=== PATIENT | female | born 1955 | race Caucasian/White ===

== ENCOUNTER 2018-08-10 14:27 | Inpatient (IN) ==
[2018-08-10] MEDS ORDERED: SODIUM CHLORIDE 0.9% 500 ML IV SCH (15:00)
[2018-08-10 15:30] LABS: Appearance Urine Clear (Clear); Bacteria Urine Automated Negative (Negative); Bilirubin Urine Negative (Negative); Blood Urine Negative (Negative); Color Urine Yellow; Epithelial Cell Urine Auto >30 /lpf (0-5); Glucose Urine UA Negative (Negative); Ketones Urine Negative (Negative); Leukocyte Esterase Urine Trace (Negative); Nitrite Urine Negative (Negative); Protein Urine Negative (Negative); RBC Urine Automated 0-4 /hpf (0-4); Specific Gravity Urine 1.022 (1.000-1.030); Urobilinogen Urine Negative (Negative)
[2018-08-10 15:59] LABS: Hematocrit (blood only) 17.6 % (37-47); Hemoglobin 6.2 g/dL (12.0-16.0); Mean Corpuscular Hgb Conc 35.2 g/dL (32-36); Mean Corpuscular Volume 102.3 fL (80-100); Mean Platelet Volume 10.5 fL (7.4-10.4); Nucleated RBC # (auto) 0.38 K/uL (0-0); Nucleated RBC % (auto) 2.1 %; Platelet Count 289 K/uL (130-400); RDW Coefficient of Variation 14.5 % (11.5-14.5); RDW Standard Deviation 48.8 fL (36.4-46.3); Red Blood Count 1.72 M/uL (4.2-5.4); White Blood Count 17.95 K/uL (4.8-10.8)
[2018-08-10 16:01] LABS: Partial Thromboplastin Ratio 2.1; Prothrombin Time > 90.0 Seconds (9.0-12.0)
[2018-08-10 16:05] LABS: INR > 10.4 (0.9-1.1); Partial Thromboplastin Time 56.4 Seconds (21.0-31.0)
[2018-08-10 16:06] LABS: Anisocytosis Present; Basophils # (auto) 0.02 K/uL (0-0.2); Basophils % (auto) 0.1 %; Eosinophils # (auto) 0.01 K/uL (0-0.5); Eosinophils % (auto) 0.1 %; Immature Granulocytes # (auto) 0.37 K/uL (0.00-0.02); Immature Granulocytes % (auto) 2.1 %; Lymphocytes # (auto) 2.45 K/uL (1.2-3.4); Lymphocytes % (auto) 13.6 %; Monocytes # (auto) 0.82 K/uL (0.11-0.59); Monocytes % (auto) 4.6 %; Neutrophils # (auto) 14.28 K/uL (1.4-6.5); Neutrophils % (auto) 79.5 %; Polychromasia 1+
--- NOTE | 2018-08-10 16:16 | XRay Report ---
TWO VIEW CHEST CLINICAL HISTORY: Dizziness. Clinical concern for pneumonia. FINDINGS: PA and lateral chest radiographs are obtained. No prior studies are available for compariso n at the time of dictation. The patient is status post midline sternotomy and aortic valve surgery. The heart is mildly enlarged. The pulmonary vasculature is noncongested. A calcified granuloma is se en in the right midlung. The lungs and pleural spaces are otherwise clear. There is no pneumothorax. The skeletal structures are osteopenic. The bony thorax appears intact. IMPRESSION: Mild cardiac enlargement with no active disease in the chest. Electronically signed by: Jarrett West M.D. 08/10/2018 4:15 PM
[2018-08-10] MEDS ORDERED: PHYTONADIONE 10 MG in SODIUM CHLORIDE 0.9% 50 ML IV ONE (16:18)
[2018-08-10] MEDS ORDERED: SODIUM CHLORIDE 0.9% 250 ML IV PRN ×2 (16:18→20:09)
[2018-08-10] MEDS ORDERED: FAMOTIDINE 20MG IV PUSH 20 MG/5 ML SYR IV STA (16:22)
[2018-08-10 16:26] LABS: Albumin Globulin Ratio 1.1 (0.9-2); Albumin Level 3.1 gm/dl (3.4-5.0); Bilirubin,Total 0.4 mg/dl (0.2-1); Calcium 9.1 mg/dl (8.5-10.1); Creatinine Clr Calc Pharmacy 42.3 ml/min; Est GFR (African American) 52.8; Est GFR (Non-African American) 45.5; Globulin 2.7 gm/dl (2.5-4.0); Potassium 4.5 mmol/L (3.5-5.1); Total Protein 5.8 gm/dl (6.4-8.2)
[2018-08-10 16:53] LABS: Beta-Hydroxybutyrate 1.98 mg/dl (0.2-2.81)
--- NOTE | 2018-08-10 19:11 | CT Scan Report ---
CT head/brain wo con CT DOSE: 537.48 mGy.cm HISTORY: Mental status change RYAN, dizziness, elevated inr r/o bleed TECHNIQUE: Multiaxial CT images of the head were performed without the use of intravenous contrast. A dose lowering technique was utilized adhering to the principles of ALARA. Comparison: None. Findings: The paranasal sinuses and mastoid air cells are clear. The calvarium and skull base are int act. The ventricles and sulci are within normal limits. There is no mass, hematoma, midline shift, or acute infarct. Impression: No acute intracranial abnormality. The above report was generated using voice recognition software. It may contain grammatical, syntax or spelling errors. Electronically signed by: Hardeep Albert M.D. 08/10/2018 7:10 PM
[2018-08-10] MEDS ORDERED: ACETAMINOPHEN 325 MG TAB PO ONE (19:18)
[2018-08-10] MEDS ORDERED: INSULIN HUMAN REGULAR PER UNIT 6 UNITS in SYRINGE 5.94 ML IV ONE (19:30)
--- NOTE | 2018-08-10 19:38 | History & Physical Report ---
Date of Service August 10, 2018 Assessment & Plan (1) Symptomatic anemia: (2) GI bleed: Presented with dark stools x 1 week. Reports loose stools x 3 weeks. Recent Augmentin use and steroid use heme positive stool in ER WBC: 17.9 (pt has been on steroids). H/H: 6.2/17.6 (Hgb was 10.9 on 08/04/18), INR>10, BUN: 42, Cr: 1.2. UA: trace leuk esterase, >30 epithelial, negative nitrites, negative blood. CXR: no active disease. In ER was given 500ml NSS, pepcid 20mg IV Possible GI bleed vs other -IVF -PRBC transfusion -Monitor H&H and -IV PPI -NPO -hold coumadin -GI consult -monitor CBC, BMP, INR (3) Supratherapeutic INR: INR >10 ER physician spoke with Dr Lynn reports recommended FFP. In ER pt was given vitamin K 10mg IV, FFP ordered -monitor INR -hold coumadin (4) Dizziness: C/O dizziness, RYAN, neck aching and palpitations with walking. CT HEAD: no acute changes Probable symptomatic anemia -monitor -fall precautions -if no improvement consider further imaging or neuro consult (5) Paroxysmal atrial fibrillation: Hx ablation 2012. On coumadin. -continue sotalol -holding coumadin secondary to elevated INR as above (6) History of aortic valve replacement: bioprosthetic valve. 2012 (7) Hyperglycemia: (8) Diabetes mellitus, type II: A1c: 7.1 on 06/28/18 Glucose: 324. no anion gap, negative beta hydroxybutyric acid Pt has been on steroids Insulin R 6 units IV Novolog, Lantus sliding scale per protocol Hold home oral agents (9) HTN (hypertension): Stable Will hold lisinopril at this time and monitor BP (10) HLD (hyperlipidemia): Hold statin with current NPO status DVT Prophylaxis -INR>10 Full Code as per discussion with pt Follows with Tomasa Lomeli for routine care Pt was seen with Dr Burdick. See addendum History of Present Illness Chief Complaint: Dizziness Primary Care Provider: NO PCP Pt is 63 y/o F with PMH AVR with bioprosthetic valve in 2012, s/p ascending aortic aneurysm repair 2012, paroxysmal atrial fibrillation with history of ablation in 2012 on Coumadin, CAD s/p cath 2012 with nonobstructive CAD, HTN, HLD, DM II presented to ER with complaint of dizziness. Pt is poor historian. Patient reports for the past week has been feeling dizzy with associated headache and neck aching and pounding sensation in the chest with walking and standing. She denies any syncopal episodes. Patient states today was having pink specks in her vision bilaterally with standing. Also reports the past week with intermittent right arm numbness with standing and walking occurs with the dizziness. Patient was seen by PCP 08/03/2017 with reported sinus pain congestion and ear pain for 2 weeks and was placed on Augmentin and Medrol Dosepak. Patient was then placed on prednisone taper 2 days ago. Today patient is denying any nasal congestion. Patient states approximately 3 weeks ago started with loose stools. Approximately 1 week ago had vomiting for 1 to 2 days which has resolved. Patient states continues with loose stools. Reports the past week has noticed black-colored stools. Patient states was having some lower abdominal aching and mid back pain 1 week ago had gross hematuria with some intermittent dysuria. Patient states dysuria and hematuria and back pain have since resolved. Patient reports had outpatient CT scan which showed stones in kidneys. She reports is been measuring temperature and highest is been 99F 1 week ago. Last had INR checked on 07/12/2018 and INR was 2.8. Denies diaphoresis, vision loss, SOB, orthopnea, cough, sore throat, choking, otalgia, rhinorrhea, extremity weakness, extremity edema, rashes. History UGI 2013 that was normal History colonoscopy in 2014 that was normal Allergies Allergy/AdvReac Type Severity Reaction Status Date / Time ciprofloxacin Allergy Unknown Nausea/Vomi Verified 08/10/18 16:09 ting metformin AdvReac Unknown Diarrhea Verified 08/10/18 16:09 Home Medications Home Medications Medication Instructions Recorded Confirmed Type amoxicillin-pot clavulanate 1 tab PO BID 08/10/18 08/10/18 History [Augmentin] atorvastatin 80 mg PO HS 08/10/18 08/10/18 History fluticasone propionate [Flonase 2 spray INTRANASAL DAILY 08/10/18 08/10/18 History Allergy Relief] glimepiride 4 mg PO QAM 08/10/18 08/10/18 History ketoconazole 2 % TOPICAL DAILY 08/10/18 08/10/18 History lisinopril 40 mg PO DAILY 08/10/18 08/10/18 History omeprazole 20 mg PO DAILY 08/10/18 08/10/18 History oxybutynin chloride 10 mg PO DAILY 08/10/18 08/10/18 History prednisone See Rx Instructions .ROUTE .COMPLEX 08/10/18 08/10/18 History pregabalin [Lyrica] 50 mg PO TID 08/10/18 08/10/18 History repaglinide 1 mg PO TIDM 08/10/18 08/10/18 History sotalol 40 mg PO Q12H 08/10/18 08/10/18 History warfarin 2.5 mg PO 5XWK 08/10/18 08/10/18 History warfarin 5 mg PO 2XWK 08/10/18 08/10/18 History Past Med/Surg History Medical History History of hysterectomy (Chronic) History of cardioversion (Chronic) Paroxysmal atrial fibrillation (Chronic) Diabetes mellitus, type II (Chronic) HLD (hyperlipidemia) (Chronic) HTN (hypertension) (Chronic) No significant past medical history Surgical History Hx of tonsillectomy (Chronic) History of cataract surgery (Chronic) History of appendectomy (Chronic) History of (Chronic) History of aortic valve replacement (Chronic) Family History Other Heart disease Social History Preferred Language: Spanish Feels Safe at Home: Yes Smoking Status: Never smoker Hx Alcohol Use: No Hx Substance Use: No Review of Systems Review of Systems: All systems reviewed & are unremarkable except as noted in HPI & below Physical Exam Physical Exam: General: no acute distress, WDWN Head: normocephalic, atraumatic Eyes: PERRL, EOM's intact, conjunctiva pale, anicteric ENT: normal inspection external ears, nose, mucous membranes moist Neck: supple, trachea midline, non-tender Lungs: clear, no respiratory distress, no wheezing/rhonchi/rales CV: RRR, no JVD, no pretibial edema Abd: normal BS, soft, non-tender Ext: no cyanosis, no calf tenderness, strength 4/5 upper and lower extremities Neuro: A&O x 3, no focal deficits noted, normal affect Skin: warm, dry, skin pale Results & Data Vital Signs (Past 12 Hours) Vital Signs Temp Pulse Pulse Resp BP BP Pulse Ox 08/10/18 19:17 37.0 C 68 18 137/55 L 95 08/10/18 18:27 67 20 159/68 H 96 08/10/18 17:57 71 20 159/68 H 96 08/10/18 16:46 71 20 161/57 H 96 08/10/18 16:04 62 20 97 08/10/18 15:13 59 L 99 08/10/18 14:29 36.8 C 115 H 17 141/71 H 98 Laboratory Results Short CBC 08/10/18 Range/Units 15:20 WBC 17.95 H (4.8-10.8) K/uL Hgb 6.2 L* (12.0-16.0) g/dL Hct 17.6 L* (37-47) % Plt Count 289 (130-400) K/uL BMP 08/10/18 15:20 Sodium 137 Potassium 4.5 Chloride 107 Carbon Dioxide 20 L BUN 42 H Creatinine 1.24 H Glucose 346 H* Calcium 9.1 Cardiac Enzymes 08/10/18 Range/Units 15:20 Troponin I < 0.015 (0-0.045) ng/ml Liver Function 08/10/18 Range/Units 15:20 Total Bilirubin 0.4 (0.2-1) mg/dl AST 20 (15-37) U/L ALT 24 (12-78) U/L Alkaline Phosphatase 92 (45-117) U/L Albumin 3.1 L (3.4-5.0) gm/dl Urine 08/10/18 Range/Units 15:10 Urine Color Yellow Urine Appearance Clear (Clear) Urine pH 5.0 (4.5-7.5) Ur Specific [place] 1.022 (1.000-1.030) Urine Protein Negative (Negative) Urine Glucose (UA) Negative (Negative) Diagnostic Findings CXR: IMPRESSION: Mild cardiac enlargement with no active disease in the chest. CT HEAD: Impression: No acute intracranial abnormality. Supervising Physician Co-Signing Physician Notes I have seen and examined the patient and have discussed the case with the provider above. I agree with the assessment and plan as stated with the following exceptions. Mrs. Hernandez has been having dark black stools and dizziness for the past week. She denies abdominal pain but has suprapubic TTP on exam. She is hemodynamically stable. Symptoms likely 2/2 low blood counts 2/2 supratherapeutic INR in the setting of recent Augmentin and steroid use with coumadin. This is likely acute blood loss anemia 2/2 GI bleed. PPI drip running. Two units of blood ordered. No further indications for steroids so these have been stopped and have caused significant hyperglycemia that we are also combatting overnight with insulin pushes. She is currently NPO. GI consult pending. On exam, she is mentating well and in no acute distress. Lungs are clear to auscultation bilaterally. S1/2 heard with normal rate and rhythm. No m/g/r heard. No peripheral edema present and extremities are warm and well-perfused. Abdomen is soft and nondistended with some suprapubic tenderness to palpation. Cont with plan as above. DO Gennaro Active issues: symptomatic, acute blood loss anemia supratherapeutic INR PAF T2DM with acute hyperglycemia
[2018-08-10] MEDS ORDERED: NovoLIN-R INSULIN PER UNIT CHARGE ONE (19:45)
[2018-08-10] MEDS ORDERED: PANTOprazole 40 MG in SYRINGE 0 ML IV ONE (20:30)
--- NOTE | 2018-08-10 20:30 | Emergency Department Note ---
Entered by Cuca Gomez acting as a scribe for Kris Aly MD History of Present Illness General Chief complaint: Dizziness Stated complaint: KIDNEY STONES, STOMACH PROBLEMS Source: patient History of Present Illness Onset (ago): week(s) 3 Location: abdomen (lower) Pain Consistency: + other (worsening ) Maximum Pain Intensity: 7 Quality: + sharp Associated symptoms: + loss of appetite, + nausea/vomiting (now resolved) and + other (positive loose stools; negative pain with urination; positive dizziness; ); no fever/chills The patient is a 63 year old female who presents to the Emergency Room with complaints of worsening lower abdominal pain that began 3 weeks ago. The patient states that she has had this intermittent pain over the past year, but states that it has worsened over the past 3 weeks. The patient describes this pain as sharp. She states that she has had loose stools, dizziness, and no appetite during this time. She denies hematochezia. The patient denies pain with urination and fever. The patient states that she previously had vomiting, but states that this has since resolved. She states that she was seen in [place] recently for an infection and a CT scan showed kidney stones. The patient is unsure of what infection she has, and states that she was given Augmentin and Prednisone for this infection. She states that she finished the Prednisone taper, and states that she just began another Prednisone taper. The patient denies knowing why she is taking Prednisone. Home Medications Home Medications Medication Instructions Recorded Confirmed Type amoxicillin-pot clavulanate 1 tab PO BID 08/10/18 08/10/18 History [Augmentin] atorvastatin 80 mg PO HS 08/10/18 08/10/18 History fluticasone propionate [Flonase 2 spray INTRANASAL DAILY 08/10/18 08/10/18 Hi story Allergy Relief] glimepiride 4 mg PO QAM 08/10/18 08/10/18 History ketoconazole 2 % TOPICAL DAILY 08/10/18 08/10/18 History lisinopril 40 mg PO DAILY 08/10/18 08/10/18 History omeprazole 20 mg PO DAILY 08/10/18 08/10/18 History oxybutynin chloride 10 mg PO DAILY 08/10/18 08/10/18 History prednisone See Rx Instructions .ROUTE .COMPLEX 08/10/18 08/10/18 History pregabalin [Lyrica] 50 mg PO TID 08/10/18 08/10/18 History repaglinide 1 mg PO TIDM 08/10/18 08/10/18 History sotalol 40 mg PO Q12H 08/10/18 08/10/18 History warfarin 2.5 mg PO 5XWK 08/10/18 08/10/18 History warfarin 5 mg PO 2XWK 08/10/18 08/10/18 History Allergies Allergy/AdvReac Type Severity Reaction Status Date / Time ciprofloxacin Allergy Unknown Nausea/Vomi Verified 08/10/18 16:09 ting metformin AdvReac Unknown Diarrhea Verified 08/10/18 16:09 Past Med/Surg History Medical History History of hysterectomy (Chronic) History of cardioversion (Chronic) Paroxysmal atrial fibrillation (Chronic) Diabetes mellitus, type II (Chronic) HLD (hyperlipidemia) (Chronic) HTN (hypertension) (Chronic) No significant past medical history Surgical History Hx of tonsillectomy (Chronic) History of cataract surgery (Chronic) History of appendectomy (Chronic) History of (Chronic) History of aortic valve replacement (Chronic) Family History Other Heart disease Social History Preferred Language: [place] Feels Safe at Home: Yes Smoking Status: Never smoker Hx Alcohol Use: No Hx Substance Use: No Review of Systems See HPI for pertinent positives & negatives. and A total of 10 systems reviewed and were otherwise negative Physical Exam Vital Signs Vital Signs - 24 hr 08/10/18 14:29 08/10/18 15:13 08/10/18 16:04 Temperature 36.8 C Temperature Source Oral Sepsis Recent Fever Within 48 Hours No Sepsis New/Unexplained Change in Mental Status No Sepsis Action Taken by Nursing No Action Required Pulse Rate 115 H 59 L Pulse Rate [Right] 62 Pulse Strength Normal Respiratory Rate 17 20 Respiratory Effort / Characteristics Non-Labored Non-Labored Spontaneous Respiratory Depth Normal Normal Respiratory Pattern Regular Blood Pressure 141/71 H Blood Pressure [Right Arm] Blood Pressure Mean 94 Blood Pressure Mean [Right Arm] Blood Pressure Position Sitting Blood Pressure Position [Right Arm] Pulse Oximetry 98 99 97 Oxygen Delivery Method Room Air Room Air Room Air 08/10/18 16:46 08/10/18 17:57 08/10/18 18:27 Temperature Temperature Source Sepsis Recent Fever Within 48 Hours Sepsis New/Unexplained Change in Mental Status Sepsis Action Taken by Nursing Pulse Rate Pulse Rate [Right] 71 71 67 Pulse Strength Respiratory Rate 20 20 20 Respiratory Effort / Characteristics Non-Labored Spontaneous Non-Labored Spontaneous Non-Labored Spontaneous Respiratory Depth Normal Normal Respiratory Pattern Blood Pressure Blood Pressure [Right Arm] 161/57 H 159/68 H 159/68 H Blood Pressure Mean Blood Pressure Mean [Right Arm] 91 98 98 Blood Pressure Position Blood Pressure Position [Right Arm] Lying Lying Lying Pulse Oximetry 96 96 96 Oxygen Delivery Method Room Air Room Air Room Air 08/10/18 19:17 08/10/18 19:33 08/10/18 19:48 Temperature 37.0 C 37.1 C 36.9 C Temperature Source Oral Oral Oral Sepsis Recent Fever Within 48 Hours Sepsis New/Unexplained Change in Mental Status Sepsis Action Taken by Nursing Pulse Rate 68 69 65 Pulse Rate [Right] Pulse Strength Respiratory Rate 18 18 18 Respiratory Effort / Characteristics Respiratory Depth Respiratory Pattern Blood Pressure 137/55 L 118/53 L 110/68 Blood Pressure [Right Arm] Blood Pressure Mean 82 74 82 Blood Pressure Mean [Right Arm] Blood Pressure Position Lying Sitting Sitting Blood Pressure Position [Right Arm] Pulse Oximetry 95 97 97 Oxygen Delivery Method 08/10/18 20:18 Temperature 37.1 C Temperature Source Oral Sepsis Recent Fever Within 48 Hours Sepsis New/Unexplained Change in Mental Status Sepsis Action Taken by Nursing Pulse Rate 66 Pulse Rate [Right] Pulse Strength Respiratory Rate 18 Respiratory Effort / Characteristics Respiratory Depth Respiratory Pattern Blood Pressure 113/52 L Blood Pressure [Right Arm] Blood Pressure Mean 72 Blood Pressure Mean [Right Arm] Blood Pressure Position Sitting Blood Pressure Position [Right Arm] Pulse Oximetry 95 Oxygen Delivery Method Constitutional: Vital signs reviewed. Eyes: Pupils are equal round reactive to light. Conjunctiva are noninjected. ENT: Pharynx is clear without erythema or exudate. Mucous membranes are moist. Neck supple without meningeal signs. Respiratory: Clear to auscultation bilaterally. Breath sounds are equal bilaterally. Cardiovascular: Regular rate and irregular rhythm. No rubs or gallops. GI: Soft, nondistended and nontender. Bowel sounds are present. Rectal: Guaiac positive. Dark stool. No blood. Musculoskeletal: No peripheral edema. No lower extremity tenderness. Integumentary: No cyanosis. Neurological: The patient is awake and alert. No focal deficits. Psychiatric: Normal affect. Course 1437: The patient was evaluated in room C5, and a complete history and physical examination were performed. 1546: I discussed the results from [facility] with the patient. She states that she had no idea that she was on Prednisone and Augmentin for a sinus infection, and states that she has not been having sinus issues. The patient states that she remembers mentioning that maybe her "stomach bug went to her sinuses". I explained the CT results with the patient and explained how the kidney stones are not causing her symptoms. I recommended that the patient stop the steroid because it is raising her blood sugar and affecting her appetite. 1608: The patient states that she is not having chest pain, but states that she gets short of breath when she feels dizzy. 1617: I informed the patient that her hemoglobin is 6. The patient denies rectal bleeding but states that she had black stools for the past week. She states that she gave urine one week ago and states that it was mostly blood, but states that she has not seen any blood in her urine since. The patient consented to transfusion. 1619: I discussed the case with Dr. Camara who recommends giving the patient vitamin K and to not give the patient Kcentra. She states that the patient can be transfused and be given FFP. 1628: I discussed the case with Jonelle Rubio PA-C who accepts t he patient for Dr. Rosa Jean-Baptiste for further evaluation. 1904: The patient is beginning transfusion. I spoke to Dr. Rosa Jean-Baptiste who states that the patient will be getting a CT of the head because the patient is complaining of a headache. Consultations Consultation #1: I discussed the case with Dr. Camara who recommends giving the patient vitamin K and to not give the patient Kcentra. She states that the patient can be transfused and be given FFP. Time: 16:19 Consultation #2: I discussed the case with Jonelle Rubio PA-C who accepts the patient for Dr. Lee Hospitalist for further evaluation. Time: 16:28 Administered Medications Sodium Chloride (Nss) 250 mls @ 15 mls/hr IV .[id number] PRN PRN Reason: For Transfusion Stop: 09/09/18 16:17 Last Admin: 08/10/18 16:52 Dose: 15 mls/hr Documented by: [id number] Discontinued Medications Acetaminophen (Tylenol) 650 mg PO NOW ONE Stop: 08/10/18 19:19 Last Admin: 08/10/18 19:29 Dose: 650 mg Documented by: [id number] Diphenhydramine HCl (Benadryl Capsule) 25 mg PO NOW ONE Stop: 08/10/18 19:17 Last Admin: 08/10/18 19:29 Dose: 25 mg Documented by: [id number] Sodium Chloride (Nss) 500 mls @ 999 mls/hr IV .[id number] BOOGIE Stop: 08/10/18 15:30 Last Infusion: 08/10/18 16:01 Dose: 0 mls/hr Documented by: [id number] Admin: 08/10/18 15:14 Dose: 999 mls/hr Documented by: [id number] Famotidine (Pepcid 20mg Iv Push) 20 mg in 5 mls @ 2.5 mls/min IV NOW STA Stop: 08/10/18 16:23 Last Admin: 08/10/18 16:51 Dose: 2.5 mls/min Documented by: [id number] Phytonadione 10 mg/ Sodium (Chloride) 51 mls @ 102 mls/hr IV ONE ONE Stop: 08/10/18 16:47 Last Infusion: 08/10/18 17:40 Dose: 0 mls/hr Documented by: [id number] Admin: 08/10/18 16:51 Dose: 102 mls/hr Documented by: [id number] Insulin Human Regular 6 units/ (Syringe) 6 mls @ 12 mls/min IV ONE ONE Stop: 08/10/18 19:31 Last Admin: 08/10/18 19:52 Dose: 12 mls/min Documented by: [id number] Cosigned by: [id number] Insulin Human Regular (Novolin R U-100 Per Unit) Confirm Administered Dose 6 units .ROUTE .STK-MED ONE Stop: 08/10/18 19:46 Last Admin: 08/10/18 19:49 Dose: Not Given Documented by: [id number] Medical Decision Making Differential Diagnosis Differential diagnoses include infection, UTI, pneumonia, kidney stone, colitis, enteritis, dehydration, anemia, and others were considered. Medical Records Attestation: I reviewed the patient's medical records. The patient was seen on 08/03/2018 and was treated with Augmentin and Prednisone for a sinus infection. Blood work showed hyperglycemia with a sugar of 356. The patient was anemic. Urine showed hematuria. A CT on 08/08/2018 of the abdomen/pelvis showed enteritis and bilateral non-obstructing renal calculi. Home Medications Current Medication List: was personally reviewed by me Laboratory Data Attestation: I reviewed the patient's lab results. Result diagrams: 08/10/18 15:20 08/10/18 15:20 Lab Results 08/10/18 08/10/18 08/10/18 Range/Units 15:10 15:10 15:20 WBC (4.8-10.8) K/uL RBC (4.2-5.4) M/uL Hgb (12.0-16.0) g/dL Hct (37-47) % MCV (80-100) fL MCH (25-34) pg MCHC (32-36) g/dL RDW Std Deviation (36.4-46.3) fL RDW Coeff of Ravin (11.5-14.5) % Plt Count (130-400) K/uL MPV (7.4-10.4) fL Immature Gran % (Auto) % Neut % (Auto) % Lymph % (Auto) % [place] % (Auto) % Eos % (Auto) % Baso % (Auto) % Immature Gran # (Auto) (0.00-0.02) K/uL Neut # (Auto) (1.4-6.5) K/uL Lymph # (Auto) (1.2-3.4) K/uL [place] # (Auto) (0.11-0.59) K/uL Eos # (Auto) (0-0.5) K/uL Baso # (Auto) (0-0.2) K/uL Absolute Nucleated RBC (0-0) K/uL Nucleated RBC % (auto) % Polychromasia Anisocytosis PT (9.0-12.0) Seconds INR (0.9-1.1) APTT (21.0-31.0) Seconds PTT Ratio Sodium 137 (136-145) mmol/L Potassium 4.5 (3.5-5.1) mmol/L Chloride 107 (98-107) mmol/L Carbon Dioxide 20 L (21-32) mmol/L Anion Gap 10.0 (3-11) BUN 42 H (7-18) mg/dl Creatinine 1.24 H (0.6-1.2) mg/dl Est Cr Clr Drug Dosing 42.3 ml/min Est GFR ( Amer) 52.8 Est GFR (Non-Af Amer) 45.5 BUN/Creatinine Ratio 34.0 H (10-20) Glucose 346 H* (70-99) mg/dl POC Glucose (70-99) Calcium 9.1 (8.5-10.1) mg/dl Total Bilirubin 0.4 (0.2-1) mg/dl AST 20 (15-37) U/L ALT 24 (12-78) U/L Alkaline Phosphatase 92 (45-117) U/L Troponin I (0-0.045) ng/ml Total Protein 5.8 L (6.4-8.2) gm/dl Albumin 3.1 L (3.4-5.0) gm/dl Globulin 2.7 (2.5-4.0) gm/dl Albumin/Globulin Ratio 1.1 (0.9-2) Lipase (73-393) U/L Beta-Hydroxybutyric Acd 1.98 (0.2-2.81) mg/dl Urine Color Yellow Urine Appearance Clear (Clear) Urine pH 5.0 (4.5-7.5) Ur Specific [place] 1.022 (1.000-1.030) Urine Protein Negative (Negative) POC Urine Protein Negative (Negative) Urine Glucose (UA) Negative (Negative) POC Ur Glucose (UA) Normal (Normal) Urine Ketones Negative (Negative) POC Urine Ketones Negative (Negative) Urine Blood Negative (Negative) POC Urine Blood Trace H (Negative) Urine Nitrite Negative (Negative) POC Urine Nitrite Negative (Negative) Urine Bilirubin Negative (Negative) Urine Urobilinogen Negative (Negative) Ur Leukocyte Esterase Trace H (Negative) POC U Leukocyte Esteras Negative (Negative) Urine WBC (Auto) 1-5 (0-5) /hpf Urine RBC (Auto) 0-4 (0-4) /hpf U Hyaline Cast (Auto) 1-5 (0-5) /lpf U Epithel Cells (Auto) >30 H (0-5) /lpf Urine Bacteria (Auto) Negative (Negative) Blood Type Blood Type Recheck Antibody Screen Crossmatch 08/10/18 08/10/18 08/10/18 Range/Units 15:20 15:20 15:20 WBC 17.95 H (4.8-10.8) K/uL RBC 1.72 L (4.2-5.4) M/uL Hgb 6.2 L* (12.0-16.0) g/dL Hct 17.6 L* (37-47) % MCV 102.3 H (80-100) fL MCH 36.0 H (25-34) pg MCHC 35.2 (32-36) g/dL RDW Std Deviation 48.8 H (36.4-46.3) fL RDW Coeff of Ravin 14.5 (11.5-14.5) % Plt Count 289 (130-400) K/uL MPV 10.5 H (7.4-10.4) fL Immature Gran % (Auto) 2.1 % Neut % (Auto) 79.5 % Lymph % (Auto) 13.6 % [place]ancock % (Auto) 4.6 % Eos % (Auto) 0.1 % Baso % (Auto) 0.1 % Immature Gran # (Auto) 0.37 H (0.00-0.02) K/uL Neut # (Auto) 14.28 H (1.4-6.5) K/uL Lymph # (Auto) 2.45 (1.2-3.4) K/uL [place] # (Auto) 0.82 H (0.11-0.59) K/uL Eos # (Auto) 0.01 (0-0.5) K/uL Baso # (Auto) 0.02 (0-0.2) K/uL Absolute Nucleated RBC 0.38 H (0-0) K/uL Nucleated RBC % (auto) 2.1 % Polychromasia 1+ Anisocytosis Present PT (9.0-12.0) Seconds INR (0.9-1.1) APTT (21.0-31.0) Seconds PTT Ratio Sodium (136-145) mmol/L Potassium (3.5-5.1) mmol/L Chloride (98-107) mmol/L Carbon Dioxide (21-32) mmol/L Anion Gap (3-11) BUN (7-18) mg/dl Creatinine (0.6-1.2) mg/dl Est Cr Clr Drug Dosing ml/min Est GFR ( Amer) Est GFR (Non-Af Amer) BUN/Creatinine Ratio (10-20) Glucose (70-99) mg/dl POC Glucose (70-99) Calcium (8.5-10.1) mg/dl Total Bilirubin (0.2-1) mg/dl AST (15-37) U/L ALT (12-78) U/L Alkaline Phosphatase (45-117) U/L Troponin I < 0.015 (0-0.045) ng/ml Total Protein (6.4-8.2) gm/dl Albumin (3.4-5.0) gm/dl Globulin (2.5-4.0) gm/dl Albumin/Globulin Ratio (0.9-2) Lipase 141 (73-393) U/L Beta-Hydroxybutyric Acd (0.2-2.81) mg/dl Urine Color Urine Appearance (Clear) Urine pH (4.5-7.5) Ur Specific [place] (1.000-1.030) Urine Protein (Negative) POC Urine Protein (Negative) Urine Glucose (UA) (Negative) POC Ur Glucose (UA) (Normal) Urine Ketones (Negative) POC Urine Ketones (Negative) Urine Blood (Negative) POC Urine Blood (Negative) Urine Nitrite (Negative) POC Urine Nitrite (Negative) Urine Bilirubin (Negative) Urine Urobilinogen (Negative) Ur Leukocyte Esterase (Negative) POC U Leukocyte Esteras (Negative) Urine WBC (Auto) (0-5) /hpf Urine RBC (Auto) (0-4) /hpf U Hyaline Cast (Auto) (0-5) /lpf U Epithel Cells (Auto) (0-5) /lpf Urine Bacteria (Auto) (Negative) Blood Type Blood Type Recheck Antibody Screen Crossmatch 08/10/18 08/10/18 08/10/18 Range/Units 15:23 16:41 18:15 WBC (4.8-10.8) K/uL RBC (4.2-5.4) M/uL Hgb (12.0-16.0) g/dL Hct (37-47) % MCV (80-100) fL MCH (25-34) pg MCHC (32-36) g/dL RDW Std Deviation (36.4-46.3) fL RDW Coeff of Ravin (11.5-14.5) % Plt Count (130-400) K/uL MPV (7.4-10.4) fL Immature Gran % (Auto) % Neut % (Auto) % Lymph % (Auto) % [place] % (Auto) % Eos % (Auto) % Baso % (Auto) % Immature Gran # (Auto) (0.00-0.02) K/uL Neut # (Auto) (1.4-6.5) K/uL Lymph # (Auto) (1.2-3.4) K/uL [place] # (Auto) (0.11-0.59) K/uL Eos # (Auto) (0-0.5) K/uL Baso # (Auto) (0-0.2) K/uL Absolute Nucleated RBC (0-0) K/uL Nucleated RBC % (auto) % Polychromasia Anisocytosis PT > 90.0 H (9.0-12.0) Seconds INR > 10.4 H* (0.9-1.1) APTT 56.4 H* (21.0-31.0) Seconds PTT Ratio 2.1 Sodium (136-145) mmol/L Potassium (3.5-5.1) mmol/L Chloride (98-107) mmol/L Carbon Dioxide (21-32) mmol/L Anion Gap (3-11) BUN (7-18) mg/dl Creatinine (0.6-1.2) mg/dl Est Cr Clr Drug Dosing ml/min Est GFR ( Amer) Est GFR (Non-Af Amer) BUN/Creatinine Ratio (10-20) Glucose (70-99) mg/dl POC Glucose (70-99) Calcium (8.5-10.1) mg/dl Total Bilirubin (0.2-1) mg/dl AST (15-37) U/L ALT (12-78) U/L Alkaline Phosphatase (45-117) U/L Troponin I (0-0.045) ng/ml Total Protein (6.4-8.2) gm/dl Albumin (3.4-5.0) gm/dl Globulin (2.5-4.0) gm/dl Albumin/Globulin Ratio (0.9-2) Lipase (73-393) U/L Beta-Hydroxybutyric Acd (0.2-2.81) mg/dl Urine Color Urine Appearance (Clear) Urine pH (4.5-7.5) Ur Specific [place] (1.000-1.030) Urine Protein (Negative) POC Urine Protein (Negative) Urine Glucose (UA) (Negative) POC Ur Glucose (UA) (Normal) Urine Ketones (Negative) POC Urine Ketones (Negative) Urine Blood (Negative) POC Urine Blood (Negative) Urine Nitrite (Negative) POC Urine Nitrite (Negative) Urine Bilirubin (Negative) Urine Urobilinogen (Negative) Ur Leukocyte Esterase (Negative) POC U Leukocyte Esteras (Negative) Urine WBC (Auto) (0-5) /hpf Urine RBC (Auto) (0-4) /hpf U Hyaline Cast (Auto) (0-5) /lpf U Epithel Cells (Auto) (0-5) /lpf Urine Bacteria (Auto) (Negative) Blood Type O Positive Blood Type Recheck O Positive Antibody Screen NEGATIVE Crossmatch See Detail 08/10/18 08/10/18 08/10/18 Range/Units 18:39 18:40 19:52 WBC (4.8-10.8) K/uL RBC (4.2-5.4) M/uL Hgb (12.0-16.0) g/dL Hct (37-47) % MCV (80-100) fL MCH (25-34) pg MCHC (32-36) g/dL RDW Std Deviation (36.4-46.3) fL RDW Coeff of Ravin (11.5-14.5) % Plt Count (130-400) K/uL MPV (7.4-10.4) fL Immature Gran % (Auto) % Neut % (Auto) % Lymph % (Auto) % [place] % (Auto) % Eos % (Auto) % Baso % (Auto) % Immature Gran # (Auto) (0.00-0.02) K/uL Neut # (Auto) (1.4-6.5) K/uL Lymph # (Auto) (1.2-3.4) K/uL [place] # (Auto) (0.11-0.59) K/uL Eos # (Auto) (0-0.5) K/uL Baso # (Auto) (0-0.2) K/uL Absolute Nucleated RBC (0-0) K/uL Nucleated RBC % (auto) % Polychromasia Anisocytosis PT (9.0-12.0) Seconds INR (0.9-1.1) APTT (21.0-31.0) Seconds PTT Ratio Sodium (136-145) mmol/L Potassium (3.5-5.1) mmol/L Chloride (98-107) mmol/L Carbon Dioxide (21-32) mmol/L Anion Gap (3-11) BUN (7-18) mg/dl Creatinine (0.6-1.2) mg/dl Est Cr Clr Drug Dosing ml/min Est GFR ( Amer) Est GFR (Non-Af Amer) BUN/Creatinine Ratio (10-20) Glucose (70-99) mg/dl POC Glucose 382 H* 375 H* 370 H* (70-99) Calcium (8.5-10.1) mg/dl Total Bilirubin (0.2-1) mg/dl AST (15-37) U/L ALT (12-78) U/L Alkaline Phosphatase (45-117) U/L Troponin I (0-0.045) ng/ml Total Protein (6.4-8.2) gm/dl Albumin (3.4-5.0) gm/dl Globulin (2.5-4.0) gm/dl Albumin/Globulin Ratio (0.9-2) Lipase (73-393) U/L Beta-Hydroxybutyric Acd (0.2-2.81) mg/dl Urine Color Urine Appearance (Clear) Urine pH (4.5-7.5) Ur Specific [place] (1.000-1.030) Urine Protein (Negative) POC Urine Protein (Negative) Urine Glucose (UA) (Negative) POC Ur Glucose (UA) (Normal) Urine Ketones (Negative) POC Urine Ketones (Negative) Urine Blood (Negative) POC Urine Blood (Negative) Urine Nitrite (Negative) POC Urine Nitrite (Negative) Urine Bilirubin (Negative) Urine Urobilinogen (Negative) Ur Leukocyte Esterase (Negative) POC U Leukocyte Esteras (Negative) Urine WBC (Auto) (0-5) /hpf Urine RBC (Auto) (0-4) /hpf U Hyaline Cast (Auto) (0-5) /lpf U Epithel Cells (Auto) (0-5) /lpf Urine Bacteria (Auto) (Negative) Blood Type Blood Type Recheck Antibody Screen Crossmatch Imaging Data Radiologist's Impression: Radiology results as stated below per my review and the radiologist's interpretation: TWO VIEW CHEST CLINICAL HISTORY: Dizziness. Clinical concern for pneumonia. FINDINGS: PA and lateral chest radiographs are obtained. No prior studies are available for comparison at the time of dictation. The patient is status post midline sternotomy and aortic valve surgery. The heart is mildly enlarged. The pulmonary vasculature is noncongested. A calcified granuloma is seen in the right midlung. The lungs and pleural spaces are otherwise clear. There is no pneumothorax. The skeletal structures are osteopenic. The bony thorax appears intact. IMPRESSION: Mild cardiac enlargement with no active disease in the chest. Electronically signed by: Jarrett West M.D. 08/10/2018 4:15 PM ECG Data Attestation: I personally reviewed and interpreted this ECG as follows: Indication: other (dizziness) Rate (beats per minute): 62 Rhythm: sinus rhythm Findings: + PVC (multiple ); no ST elevation Blood Pressure Blood Pressure Findings: Elevated blood pressure Blood Pressure Disposition: further management by hospitalist [facility] Narrative I did evaluate the patient as noted above. The patient is presenting with diarrhea for 3 weeks. She also has had intermittent abdominal pain for a year but it has gotten worse over the past week. She had a CAT scan recently as described above. She states she is here because she feels weak and dizzy and sometimes short of breath. She feels she needs to see a urologist for kidney stones. I did explain to her that the kidney stones or intrarenal and likely unrelated to her symptoms. IV access was established. I did treat the patient with normal saline IV. The patient was placed on a continuous collection systems modeler. I did order and personally review the patient's 12-lead EKG as described above. She has no evidence of acute ischemia. I did order and personally reviewed the images of the patient's chest x-ray as described above. There is no signs of pneumonia. I did order a urine analysis. There is no evidence of infection. I did order and review the patient's blood work as noted in the electronic medical record. She is severely anemic with a hemoglobin of 6. Her INR is elevated over 10. This likely explains the patient's lightheadedness and shortness of breath. She also has hyperglycemia. This is likely related to her prednisone use. She now states that she has had black stools for a week. I did perform a rectal exam which showed very dark stools which is strongly guaiac positive. No gross blood was noted. I did discuss the test results with the patient. I did obtain informed consent for transfusion. I did speak to Dr. Guillen in order to treat her with Kcentra. She did not feel the patient required Kcentra at this time as she was stable. She recommended transfusion with FFP and vitamin K. I did order 2 units of packed RBCs to be transfused as well as 2 units of FFP. I did treat the patient with vitamin K 10 mg IV. I did discuss the case with the hospitalist and case worker. She was admitted to the hospital. Transfusion was started in the emergency department. I attempted to start a Protonix drip but the hospital apparently has an on back order and I was unable to do so. The patient was given IV Pepcid here. Impression & Plan Upper GI bleed, Symptomatic anemia, Supratherapeutic INR, Hyperglycemia Critical Care Time I have personally spent 45 minutes of critical care time in the direct management of this patient. This includes bedside care, interpretation of diagnostic studies, and testing, discussion with consultants, patient, and family members, and other required patient management activities. This 45 minutes is in excess of all separately billable procedures. Critical Care Time: Yes Total Critical Care Time: 45 Discharge Plan Visit Data Chief Complaint: Dizziness Stated Complaint: KIDNEY STONES, STOMACH PROBLEMS ED Provider: Kris Aly Discharge Problem: Upper GI bleed, Symptomatic anemia, Supratherapeutic INR, Hyperglycemia Patient Disposition: Being Evaluated by Hospitalist The scribe's documentation has been prepared under my direction and personally reviewed by me in its entirety. I confirm that the note above accurately reflects all work, treatment, procedures, and medical decision making performed by me.
[2018-08-10] MEDS ORDERED: PANTOprazole 80 MG in DEXTROSE 5% 100 ML IV STA (20:33)
[2018-08-10] MEDS ORDERED: ACETAMINOPHEN 325 MG TAB PO PRN (20:42)
[2018-08-10] MEDS ORDERED: DEXTROSE 50% 50 ML SYRINGE IV PRN (20:42)
[2018-08-10] MEDS ORDERED: CARBOHYDRATES FOR HYPOGLYCEMIA PO PRN (20:42)
[2018-08-10] MEDS ORDERED: GLUCOSE 40% GEL 15 GM TUBE PO PRN (20:42)
[2018-08-10] MEDS ORDERED: GLUCAGON FOR INJ 1 MG VIAL SQ PRN (20:42)
[2018-08-10] MEDS ORDERED: GLUCOSE 10 TABS/TUBE PO PRN (20:42)
[2018-08-10] MEDS ORDERED: SODIUM CHLORIDE 0.9% 1000ML 1,000 ML IV SCH (20:50)
[2018-08-10] MEDS ORDERED: INSULIN ASPART 100 UNITS/ML 3 ML PEN SC SCH (21:00)
[2018-08-10] MEDS: PANTOprazole 40 MG in DEXTROSE 5% 100 ML IV SCH (21:40)
[2018-08-10] MEDS: SOTALOL HCL 80 MG TAB PO SCH (21:40)
[2018-08-10] MEDS: INSULIN GLARGINE SOLOSTAR 100 UNITS/ML 3 ML PEN SC SCH (21:41)
[2018-08-10] MEDS: INSULIN ASPART 100 UNITS/ML 3 ML PEN SC SCH (21:43)
[2018-08-11] MEDS ORDERED: INSULIN ASPART 100 UNITS/ML 3 ML PEN SC ONE (01:00)
[2018-08-11 01:20] LABS: Hematocrit (blood only) 23.9 % (37-47); Hemoglobin 8.5 g/dL (12.0-16.0)
[2018-08-11] MEDS: PANTOprazole 40 MG in DEXTROSE 5% 100 ML IV SCH ×4 (02:27→16:47)
[2018-08-11] MEDS: INSULIN ASPART 100 UNITS/ML 3 ML PEN SC SCH ×4 (06:20→20:33)
[2018-08-11 06:55] LABS: Estimated Average Glucose 131 mg/dl; Hemoglobin A1C 6.2 % (4.5-5.6)
[2018-08-11] MEDS: SOTALOL HCL 80 MG TAB PO SCH ×3 (08:12→20:36)
[2018-08-11] MEDS: INSULIN GLARGINE SOLOSTAR 100 UNITS/ML 3 ML PEN SC SCH ×2 (08:14→20:33)
[2018-08-11 08:21] LABS: Hematocrit (blood only) 25.9 % (37-47); Mean Corpuscular Hgb Conc 34.7 g/dL (32-36); Mean Corpuscular Volume 91.5 fL (80-100); Mean Platelet Volume 10.4 fL (7.4-10.4); Nucleated RBC # (auto) 0.14 K/uL (0-0); Platelet Count 225 K/uL (130-400); RDW Coefficient of Variation 20.3 % (11.5-14.5); RDW Standard Deviation 62.8 fL (36.4-46.3); Red Blood Count 2.83 M/uL (4.2-5.4); White Blood Count 13.71 K/uL (4.8-10.8)
[2018-08-11 08:25] LABS: Prothrombin Time 10.7 Seconds (9.0-12.0)
[2018-08-11 08:41] LABS: Calcium 9.4 mg/dl (8.5-10.1); Est GFR (African American) 78.8; Potassium 3.9 mmol/L (3.5-5.1)
[2018-08-11] MEDS ORDERED: PANTOprazole 40 MG in SYRINGE 0 ML IV SCH (09:00)
--- NOTE | 2018-08-11 10:57 | Anesthesiology Consultation ---
Date of Service August 11, 2018 Assessment & Plan Chart Review Chart Review: Acceptable Risk for Surgery and Patient NOT seen in Pre Admission Testing Consults Requested none ASA ASA4 Proposed Anesthesia Anesthesia Type: MAC Risk / Benefits Reviewed With: PT / POA / Parent / Guardian, Accepts Plan and Informed Consent Obtained History Surgery Operation Date: 08/11/18 09:10 Proposed Procedures p Esophagogastroduodenoscopy Dr Conor Perdomo Height/Weight Height: 1.68 m Weight: 70.8 kg Allergies Allergy/AdvReac Type Severity Reaction Status Date / Time ciprofloxacin Allergy Unknown Nausea/Vomi Verified 08/10/18 16:09 ting metformin AdvReac Unknown Diarrhea Verified 08/10/18 16:09 Medications Home Medications Medication Instructions Recorded Confirmed Last Taken amoxicillin-pot clavulanate 1 tab PO BID 08/10/18 08/10/18 Unknown [Augmentin] atorvastatin 80 mg PO HS 08/10/18 08/10/18 Unknown fluticasone propionate [Flonase 2 spray INTRANASAL DAILY 08/10/18 08/10/18 Unknown Allergy Relief] glimepiride 4 mg PO QAM 08/10/18 08/10/18 Unknown ketoconazole 2 % TOPICAL DAILY 08/10/18 08/10/18 Unknown lisinopril 40 mg PO DAILY 08/10/18 08/10/18 Unknown omeprazole 20 mg PO DAILY 08/10/18 08/10/18 Unknown oxybutynin chloride 10 mg PO DAILY 08/10/18 08/10/18 Unknown prednisone See Rx Instructions .ROUTE .COMPLEX 08/10/18 08/10/18 Unknown pregabalin [Lyrica] 50 mg PO TID 08/10/18 08/10/18 Unknown repaglinide 1 mg PO TIDM 08/10/18 08/10/18 Unknown sotalol 40 mg PO Q12H 08/10/18 08/10/18 Unknown warfarin 2.5 mg PO 5XWK 08/10/18 08/10/18 Unknown warfarin 5 mg PO 2XWK 08/10/18 08/10/18 Unknown Active Medications Generic Name Dose Route Start Last Admin Trade Name Freq PRN Reason Stop Dose Admin Sodium Chloride 250 mls @ 15 mls/hr 08/10/18 16:18 08/11/18 09:33 Nss IV 09/09/18 16:17 Infused .[id number] PRN Infusion For Transfusion Pantoprazole Sodium 40 mg/ 100 mls @ 20 mls/hr 08/10/18 20:45 08/11/18 08:11 Dextrose IV 09/09/18 20:44 20 mls/hr Q5H BOOGIE Administration Insulin Aspart 0 units 08/11/18 00:00 08/11/18 12:03 Novolog Flexpen SC 09/09/18 20:59 Not Given Q6 BOOGIE Insulin Glargine 0 units 08/10/18 21:00 08/11/18 08:14 Lantus Solostar Pen SC 09/09/18 20:59 6 units Q12 BOOGIE Administration Protocol Sotalol HCl 40 mg 08/10/18 21:00 08/11/18 08:12 Betapace PO 09/09/18 20:59 40 mg Q12H BOOGIE Administration NPO Date Last Intake of Fluids: 08/11/18 Time Last Intake of Fluids: 08:00 Last Intake of Fluids Comment: Sips of water with medicine Date Last Intake of Solids: 08/10/18 Time Last Intake of Solids: 08:00 Past Medical History Medical History Dizziness Leukocytosis GI bleed History of hysterectomy (Chronic) Paroxysmal atrial fibrillation (Chronic) Diabetes mellitus, type II (Chronic) HLD (hyperlipidemia) (Chronic) HTN (hypertension) (Chronic) Upper GI bleed (Acute) Symptomatic anemia (Acute) s/p 2units of PRBCs Supratherapeutic INR (Acute) Hyperglycemia (Acute) No significant past medical history Exercise / Class Metabolic Activity II 4-5 Yardwork/Stairs/Walk up hill Past Family History Family History Other Heart disease Past Surgical History Surgical History Hx of tonsillectomy (Chronic) History of cataract surgery (Chronic) History of appendectomy (Chronic) History of cardioversion (Chronic) History of (Chronic) History of aortic valve replacement (Chronic) 2012 H/O: hysterectomy Past Anesthesia History No Hx of Anesthesia Complications and No Family Hx of Anesthesia Complications History of PONV No Hx of PONV and No Hx of Motion Sickness Social History Smoking Status: Never smoker Do You Dip or Chew Tobacco: No Hx Alcohol Use: No Hx Substance Use: No Review of Systems Respiratory: no cough and no dyspnea Cardiovascular: no chest pain, no chest pain at rest, no chest pain with activity and no lightheadedness Gastrointestinal: no nausea and no vomiting Physical Exam Vital Signs Last Vital Signs Temp 37 C 08/11/18 12:27 Pulse 47 L 08/11/18 12:27 Resp 18 08/11/18 12:27 BP 156/79 H 08/11/18 12:27 Pulse Ox 98 08/11/18 12:27 ENMT Mouth: no TMJ abnormality and no TMJ clicking Thyromental Distance: < 3.5 Finger Breadths Mallampati Class: III Neck + shortened thyromental distance Respiratory Auscultation: lungs clear to auscultation bilaterally Cardiovascular Rate/Rhythm: regular rate; + abnormal rhythm (Irregular) Psychiatric Orientation: alert and oriented x 3 Testing Electrocardiogram Date: 08/11/18 Findings: + NSR @ (62 bpm) Sinus rhythm with Premature atrial complexes with Aberrant conduction Nonspecific ST and T wave abnormality Prolonged QT Abnormal ECG When compared with ECG of 10-AUG-2018 15:57, (unconfirmed) Premature ventricular complexes are no longer Present Chest X-Ray Date: 08/10/18 Findings: + NAD Mild cardiac enlargement with no active disease in the chest Laboratory Results 08/11/18 07:46 08/11/18 07:46 Blood Type O Positive 08/10/18 16:41 Antibody Screen NEGATIVE 08/10/18 16:41 PT 10.7 Seconds (9.0-12.0) 08/11/18 07:46 INR 1.0 (0.9-1.1) 08/11/18 07:46 APTT 56.4 Seconds (21.0-31.0) H* 08/10/18 15:23 Hemoglobin A1c 6.2 % (4.5-5.6) H 08/11/18 01:02 Urine Color Yellow 08/10/18 15:10 Urine Appearance Clear (Clear) 08/10/18 15:10 Urine pH 5.0 (4.5-7.5) 08/10/18 15:10 Ur Specific [place] 1.022 (1.000-1.030) 08/10/18 15:10 Urine Protein Negative (Negative) 08/10/18 15:10 Urine Glucose (UA) Negative (Negative) 08/10/18 15:10 Urine Ketones Negative (Negative) 08/10/18 15:10 Urine Nitrite Negative (Negative) 08/10/18 15:10 Ur Leukocyte Esterase Trace (Negative) H 08/10/18 15:10 Urine WBC (Auto) 1-5 /hpf (0-5) 08/10/18 15:10 Urine RBC (Auto) 0-4 /hpf (0-4) 08/10/18 15:10 U Hyaline Cast (Auto) 1-5 /lpf (0-5) 08/10/18 15:10 U Epithel Cells (Auto) >30 /lpf (0-5) H 08/10/18 15:10 Urine Bacteria (Auto) Negative (Negative) 08/10/18 15:10 08/11/18 08/11/18 08/11/18 12:00 05:59 01:05 POC Glucose 101 H 132 H 219 H
--- NOTE | 2018-08-11 11:59 | Hospitalist Progress Note ---
Date of Service August 11, 2018 Assessment & Plan (1) Symptomatic anemia: (2) GI bleed: Mostly due to Coumadin Presented on admission with dark stools for 1 week associated with weakness and dizziness Heme positive stool in ER INR on admission greater than 10 Hgb 6.2 on admission Hgb this morning 9 Received 2 unit PRBC and 2 units FFP GI on board Plan to get EGD done today Keep NPO Continue PPI drip Monitor H/H Continue to hold coumadin Continue monitor closely (3) Supratherapeutic INR: INR >10 on admission ER physician spoke with Dr Lynn reports recommended FFP. In ER received vitamin K 10mg IV 2 Unit FFP given yesterday Continue to hold coumadin INR 1 today (4) Dizziness: Mostly due to symptomatic anemia with hgb 6.[address] HEAD showed no acute intracranial abnormality Resolved (5) Paroxysmal atrial fibrillation: Hx ablation 2012. rate control with sotalol Coumadin on hold due to GI bleed Stable (6) History of aortic valve replacement: bioprosthetic valve. 2012 Stable (7) Hyperglycemia: (8) Diabetes mellitus, type II: A1c: 6.2 today Continue Novolog and Lantus sliding scale Hold oral DM med Monitor BS (9) HTN (hypertension): BP elevated Will resume lisinopril in am Monitor BP (10) HLD (hyperlipidemia): Statin on hold hor now DVT Prophylaxis on SCD (due to GI bleed) CODE STATUS Full Code Disposition Will discharge home once medically stable Subjective Pt was seen and examined Lying in bed with no distress Pt said that she feels OK She said that she is hungry She has not had any bloody BM today Denies any chest pain, palpitation, dizziness and SOB Physical Exam Physical Exam: General- No acute distress Head- atraumatic Eyes- PERRL, EOMI, ENT- oropharynx clear Neck- supple, no JVD Lungs- clear to auscultation Heart- irregular rhythm; no murmur Abdomen- normal bowel sounds, soft, nontender Extremities- no calf tenderness Neuro- alert, oriented x 3; PERRL, EOMI; no facial palsy; no dysarthria Skin- warm & dry Results & Data Vital Signs (Past 12 Hours) Vital Signs Temp Pulse Pulse Resp BP BP Pulse Ox 08/11/18 11:39 36.8 C 57 L 16 154/78 H 98 08/11/18 08:00 57 L 08/11/18 06:44 36.7 C 71 20 153/71 H 99 08/11/18 03:25 37.0 C 55 L 21 123/64 95 08/11/18 01:23 57 L 08/10/18 23:57 36.7 C 50 L 16 124/70 99
--- NOTE | 2018-08-11 12:01 | Gastrointestinal Consultation ---
Date of Consultation August 11, 2018 Assessment & Plan (1) Symptomatic anemia: (2) Melena: Pt is a 63 y/o female w hx of Afib, AVR on Coumadin, currently admitted w symptomatic anemia, melena in setting of supratherapuetic INR (>10) and uses of Prednisone & Ibuprofen. She was given 2U PRBC transfusion, H/H responded. Suspect UGI bleed 2/2 PUD - Keep NPO - PPI bolus and gtt - EGD eval today by Dr. Perdomo - Monitor H/H and transfuse prn - GI will give further recs after EGD is completed. Present on Admission?: Yes Supervising Physician Co-Signing Physician Notes I have personally seen and examined the patient with BEE Davis. Her note reflects my exam and findings. I agree with her impression and plan. GI bleeding from toxic INR level. After seeing and evaluating patient it would be important to arrange EGD to look for high risk lesion.. Donald Perdomo M.D. History of Present Illness Reason for Consultation: GI bleed Requesting Physician: Dr. Genie Malcolm Attending Physician: Dr. Donald Perdomo History of Present Illness Pt is 63 y/o F with PMHx AVR s/p bioprosthetic valve replacement in 2012, s/p ascending aortic aneurysm repair 2012, paroxysmal atrial fibrillation with history of ablation in 2012 on Coumadin, CAD s/p cath 2012 with nonobstructive CAD, HTN, HLD, DM II presented to ER with complaint of dizziness, RYAN, neck ache and pounding sensation on chest. also been having R arm numbness w the dizziness. She mentioned being sick within last week with n/v, also formed but looser than normal stools. She was treated recently for URI w Augmentin and Prednisone. Noticed stools turned black and more sticky a week ago. Besides the Prednisone, she was also taking Ibuprofen for HAs Upon eval in ED, she was noted to have significant anemia, Hgb 6 (baseline close to 10). INR >10. She's given Vit K 10mg IV last night, also 2U PRBC transfusion. Hgb responded to 9, INR down to 1 today. She had been kept NPO since admission for suspected GI bleeding. Received Protonix bolus and now on gtt Her last EGD in 2013 and colonoscopy in 2014 were both unremarkable. Allergies Allergy/AdvReac Type Severity Reaction Status Date / Time ciprofloxacin Allergy Unknown Nausea/Vomi Verified 08/10/18 16:09 ting metformin AdvReac Unknown Diarrhea Verified 08/10/18 16:09 Home Medications Home Medications Medication Instructions Recorded Confirmed Type amoxicillin-pot clavulanate 1 tab PO BID 08/10/18 08/10/18 History [Augmentin] atorvastatin 80 mg PO HS 08/10/18 08/10/18 History fluticasone propionate [Flonase 2 spray INTRANASAL DAILY 08/10/18 08/10/18 History Allergy Relief] glimepiride 4 mg PO QAM 08/10/18 08/10/18 History ketoconazole 2 % TOPICAL DAILY 08/10/18 08/10/18 History lisinopril 40 mg PO DAILY 08/10/18 08/10/18 History omeprazole 20 mg PO DAILY 08/10/18 08/10/18 History oxybutynin chloride 10 mg PO DAILY 08/10/18 08/10/18 History prednisone See Rx Instructions .ROUTE .COMPLEX 08/10/18 08/10/18 History pregabalin [Lyrica] 50 mg PO TID 08/10/18 08/10/18 History repaglinide 1 mg PO TIDM 08/10/18 08/10/18 History sotalol 40 mg PO Q12H 08/10/18 08/10/18 History warfarin 2.5 mg PO 5XWK 08/10/18 08/10/18 History warfarin 5 mg PO 2XWK 08/10/18 08/10/18 History Patient History Medical History Dizziness Leukocytosis GI bleed History of hysterectomy (Chronic) History of cardioversion (Chronic) Paroxysmal atrial fibrillation (Chronic) Diabetes mellitus, type II (Chronic) HLD (hyperlipidemia) (Chronic) HTN (hypertension) (Chronic) Upper GI bleed (Acute) Symptomatic anemia (Acute) s/p 2units of PRBCs Supratherapeutic INR (Acute) Hyperglycemia (Acute) No significant past medical history Surgical History Hx of tonsillectomy (Chronic) History of cataract surgery (Chronic) History of appendectomy (Chronic) History of (Chronic) History of aortic valve replacement (Chronic) 2012 Family History Other Heart disease Social History Preferred Language: Kiswahili Communication Ability: Effective Dramatic Art Teacher Required: No Beliefs That Will Affect Care: None Current Living Situation: Family Current Living Situation Comment: 2nd son, 3rd daughter sveta Other Information That Helps Us Care for You: No Feels Safe at Home: Yes Safety Concerns: Feels Safe At This Time Smoking Status: Never smoker Hx Alcohol Use: No Hx Substance Use: No Review of Systems Review of Systems: All systems reviewed & are unremarkable except as noted in HPI & below Physical Exam Constitutional: WD/WN, vitals as above well groomed, cooperative and comfortable Eyes: PERRL, conjunctivae normal, anicteric sclerae ENMT: external ear and nose normal, oropharynx normal Respiratory: normal respiratory effort, lungs clear to auscultation Cardiovascular: RRR, no murmur, no edema Gastrointestinal (Abdomen): Inspection/Auscultation: + hypoactive bowel sounds Percussion/Palpation: + abdomen tender (generalized ) and abdomen soft Skin: no rashes, warm and dry no jaundice Neurologic: Motor/Sensory: no asterixis Psychiatric: A+Ox3, euthymic affect Lymphatic: no lymphedema Results & Data Vital Signs (Past 12 Hours) Vital Signs Temp Pulse Pulse Resp BP BP Pulse Ox 08/11/18 11:39 36.8 C 57 L 16 154/78 H 98 08/11/18 08:00 57 L 08/11/18 06:44 36.7 C 71 20 153/71 H 99 08/11/18 03:25 37.0 C 55 L 21 123/64 95 08/11/18 01:23 57 L 08/10/18 23:57 36.7 C 50 L 16 124/70 99 Laboratory Results Laboratory Results - last 48 hr 08/10/18 08/10/18 08/10/18 15:10 15:10 15:20 WBC RBC Hgb Hct MCV MCH MCHC RDW Std Deviation RDW Coeff of [place] Plt Count MPV Immature Gran % (Auto) Neut % (Auto) Lymph % (Auto) [place] % (Auto) Eos % (Auto) Baso % (Auto) Immature Gran # (Auto) Neut # (Auto) Lymph # (Auto) [place] # (Auto) Eos # (Auto) Baso # (Auto) Absolute Nucleated RBC Nucleated RBC % (auto) Polychromasia Anisocytosis PT INR APTT PTT Ratio Sodium 137 Potassium 4.5 Chloride 107 Carbon Dioxide 20 L Anion Gap 10.0 BUN 42 H Creatinine 1.24 H Est Cr Clr Drug Dosing 42.3 Est GFR ( Amer) 52.8 Est GFR (Non-Af Amer) 45.5 BUN/Creatinine Ratio 34.0 H Glucose 346 H* POC Glucose Estimat Average Glucose Hemoglobin A1c Calcium 9.1 Total Bilirubin 0.4 AST 20 ALT 24 Alkaline Phosphatase 92 Troponin I Total Protein 5.8 L Albumin 3.1 L Globulin 2.7 Albumin/Globulin Ratio 1.1 Lipase Beta-Hydroxybutyric Acd 1.98 Urine Color Yellow Urine Appearance Clear Urine pH 5.0 Ur Specific [place] 1.022 Urine Protein Negative POC Urine Protein Negative Urine Glucose (UA) Negative POC Ur Glucose (UA) Normal Urine Ketones Negative POC Urine Ketones Negative Urine Blood Negative POC Urine Blood Trace H Urine Nitrite Negative POC Urine Nitrite Negative Urine Bilirubin Negative Urine Urobilinogen Negative Ur Leukocyte Esterase Trace H POC U Leukocyte Esteras Negative Urine WBC (Auto) 1-5 Urine RBC (Auto) 0-4 U Hyaline Cast (Auto) 1-5 U Epithel Cells (Auto) >30 H Urine Bacteria (Auto) Negative Stl C. diff Tox B Gene Blood Type Blood Type Recheck Antibody Screen Crossmatch 08/10/18 08/10/18 08/10/18 15:20 15:20 15:20 WBC 17.95 H RBC 1.72 L Hgb 6.2 L* Hct 17.6 L* MCV 102.3 H MCH 36.0 H MCHC 35.2 RDW Std Deviation 48.8 H RDW Coeff of Ravin 14.5 Plt Count 289 MPV 10.5 H Immature Gran % (Auto) 2.1 Neut % (Auto) 79.5 Lymph % (Auto) 13.6 [place] % (Auto) 4.6 Eos % (Auto) 0.1 Baso % (Auto) 0.1 Immature Gran # (Auto) 0.37 H Neut # (Auto) 14.28 H Lymph # (Auto) 2.45 [place] # (Auto) 0.82 H Eos # (Auto) 0.01 Baso # (Auto) 0.02 Absolute Nucleated RBC 0.38 H Nucleated RBC % (auto) 2.1 Polychromasia 1+ Anisocytosis Present PT INR APTT PTT Ratio Sodium Potassium Chloride Carbon Dioxide Anion Gap BUN Creatinine Est Cr Clr Drug Dosing Est GFR ( Amer) Est GFR (Non-Af Amer) BUN/Creatinine Ratio Glucose POC Glucose Estimat Average Glucose Hemoglobin A1c Calcium Total Bilirubin AST ALT Alkaline Phosphatase Troponin I < 0.015 Total Protein Albumin Globulin Albumin/Globulin Ratio Lipase 141 Beta-Hydroxybutyric Acd Urine Color Urine Appearance Urine pH Ur Specific [place] Urine Protein POC Urine Protein Urine Glucose (UA) POC Ur Glucose (UA) Urine Ketones POC Urine Ketones Urine Blood POC Urine Blood Urine Nitrite POC Urine Nitrite Urine Bilirubin Urine Urobilinogen Ur Leukocyte Esterase POC U Leukocyte Esteras Urine WBC (Auto) Urine RBC (Auto) U Hyaline Cast (Auto) U Epithel Cells (Auto) Urine Bacteria (Auto) Stl C. diff Tox B Gene Blood Type Blood Type Recheck Antibody Screen Crossmatch 08/10/18 08/10/18 08/10/18 15:23 16:41 18:15 WBC RBC Hgb Hct MCV MCH MCHC RDW Std Deviation RDW Coeff of [place] Plt Count MPV Immature Gran % (Auto) Neut % (Auto) Lymph % (Auto) [place] % (Auto) Eos % (Auto) Baso % (Auto) Immature Gran # (Auto) Neut # (Auto) Lymph # (Auto) [place] # (Auto) Eos # (Auto) Baso # (Auto) Absolute Nucleated RBC Nucleated RBC % (auto) Polychromasia Anisocytosis PT > 90.0 H INR > 10.4 H* APTT 56.4 H* PTT Ratio 2.1 Sodium Potassium Chloride Carbon Dioxide Anion Gap BUN Creatinine Est Cr Clr Drug Dosing Est GFR ( Amer) Est GFR (Non-Af Amer) BUN/Creatinine Ratio Glucose POC Glucose Estimat Average Glucose Hemoglobin A1c Calcium Total Bilirubin AST ALT Alkaline Phosphatase Troponin I Total Protein Albumin Globulin Albumin/Globulin Ratio Lipase Beta-Hydroxybutyric Acd Urine Color Urine Appearance Urine pH Ur Specific [place] Urine Protein POC Urine Protein Urine Glucose (UA) POC Ur Glucose (UA) Urine Ketones POC Urine Ketones Urine Blood POC Urine Blood Urine Nitrite POC Urine Nitrite Urine Bilirubin Urine Urobilinogen Ur Leukocyte Esterase POC U Leukocyte Esteras Urine WBC (Auto) Urine RBC (Auto) U Hyaline Cast (Auto) U Epithel Cells (Auto) Urine Bacteria (Auto) Stl C. diff Tox B Gene Blood Type O Positive Blood Type Recheck O Positive Antibody Screen NEGATIVE Crossmatch See Detail 08/10/18 08/10/18 08/10/18 18:39 18:40 19:52 WBC RBC Hgb Hct MCV MCH MCHC RDW Std Deviation RDW Coeff of [place] Plt Count MPV Immature Gran % (Auto) Neut % (Auto) Lymph % (Auto) [place] % (Auto) Eos % (Auto) Baso % (Auto) Immature Gran # (Auto) Neut # (Auto) Lymph # (Auto) [place] # (Auto) Eos # (Auto) Baso # (Auto) Absolute Nucleated RBC Nucleated RBC % (auto) Polychromasia Anisocytosis PT INR APTT PTT Ratio Sodium Potassium Chloride Carbon Dioxide Anion Gap BUN Creatinine Est Cr Clr Drug Dosing Est GFR ( Amer) Est GFR (Non-Af Amer) BUN/Creatinine Ratio Glucose POC Glucose 382 H* 375 H* 370 H* Estimat Average Glucose Hemoglobin A1c Calcium Total Bilirubin AST ALT Alkaline Phosphatase Troponin I Total Protein Albumin Globulin Albumin/Globulin Ratio Lipase Beta-Hydroxybutyric Acd Urine Color Urine Appearance Urine pH Ur Specific [place] Urine Protein POC Urine Protein Urine Glucose (UA) POC Ur Glucose (UA) Urine Ketones POC Urine Ketones Urine Blood POC Urine Blood Urine Nitrite POC Urine Nitrite Urine Bilirubin Urine Urobilinogen Ur Leukocyte Esterase POC U Leukocyte Esteras Urine WBC (Auto) Urine RBC (Auto) U Hyaline Cast (Auto) U Epithel Cells (Auto) Urine Bacteria (Auto) Stl C. diff Tox B Gene Blood Type Blood Type Recheck Antibody Screen Crossmatch 08/10/18 08/10/18 08/11/18 20:22 21:05 01:02 WBC RBC Hgb Hct MCV MCH MCHC RDW Std Deviation RDW Coeff of [place]avin Plt Count MPV Immature Gran % (Auto) Neut % (Auto) Lymph % (Auto) [place] % (Auto) Eos % (Auto) Baso % (Auto) Immature Gran # (Auto) Neut # (Auto) Lymph # (Auto) [place] # (Auto) Eos # (Auto) Baso # (Auto) Absolute Nucleated RBC Nucleated RBC % (auto) Polychromasia Anisocytosis PT INR APTT PTT Ratio Sodium Potassium Chloride Carbon Dioxide Anion Gap BUN Creatinine Est Cr Clr Drug Dosing Est GFR ( Amer) Est GFR (Non-Af Amer) BUN/Creatinine Ratio Glucose POC Glucose 320 H* 282 H Estimat Average Glucose 131 Hemoglobin A1c 6.2 H Calcium Total Bilirubin AST ALT Alkaline Phosphatase Troponin I Total Protein Albumin Globulin Albumin/Globulin Ratio Lipase Beta-Hydroxybutyric Acd Urine Color Urine Appearance Urine pH Ur Specific [place] Urine Protein POC Urine Protein Urine Glucose (UA) POC Ur Glucose (UA) Urine Ketones POC Urine Ketones Urine Blood POC Urine Blood Urine Nitrite POC Urine Nitrite Urine Bilirubin Urine Urobilinogen Ur Leukocyte Esterase POC U Leukocyte Esteras Urine WBC (Auto) Urine RBC (Auto) U Hyaline Cast (Auto) U Epithel Cells (Auto) Urine Bacteria (Auto) Stl C. diff Tox B Gene Blood Type Blood Type Recheck Antibody Screen Crossmatch 08/11/18 08/11/18 08/11/18 01:02 01:05 01:20 WBC RBC Hgb 8.5 L Hct 23.9 L MCV MCH MCHC RDW Std Deviation RDW Coeff of [place] Plt Count MPV Immature Gran % (Auto) Neut % (Auto) Lymph % (Auto) [place] % (Auto) Eos % (Auto) Baso % (Auto) Immature Gran # (Auto) Neut # (Auto) Lymph # (Auto) [place] # (Auto) Eos # (Auto) Baso # (Auto) Absolute Nucleated RBC Nucleated RBC % (auto) Polychromasia Anisocytosis PT INR APTT PTT Ratio Sodium Potassium Chloride Carbon Dioxide Anion Gap BUN Creatinine Est Cr Clr Drug Dosing Est GFR ( Amer) Est GFR (Non-Af Amer) BUN/Creatinine Ratio Glucose POC Glucose 219 H Estimat Average Glucose Hemoglobin A1c Calcium Total Bilirubin AST ALT Alkaline Phosphatase Troponin I Total Protein Albumin Globulin Albumin/Globulin Ratio Lipase Beta-Hydroxybutyric Acd Urine Color Urine Appearance Urine pH Ur Specific [place] Urine Protein POC Urine Protein Urine Glucose (UA) POC Ur Glucose (UA) Urine Ketones POC Urine Ketones Urine Blood POC Urine Blood Urine Nitrite POC Urine Nitrite Urine Bilirubin Urine Urobilinogen Ur Leukocyte Esterase POC U Leukocyte Esteras Urine WBC (Auto) Urine RBC (Auto) U Hyaline Cast (Auto) U Epithel Cells (Auto) Urine Bacteria (Auto) Stl C. diff Tox B Gene Cancelled Blood Type Blood Type Recheck Antibody Screen Crossmatch 08/11/18 08/11/18 08/11/18 05:59 07:46 07:46 WBC 13.71 H RBC 2.83 L Hgb 9.0 L Hct 25.9 L MCV 91.5 D MCH 31.8 MCHC 34.7 RDW Std Deviation 62.8 H RDW Coeff of Ravin 20.3 H Plt Count 225 MPV 10.4 Immature Gran % (Auto) Neut % (Auto) Lymph % (Auto) [place] % (Auto) Eos % (Auto) Baso % (Auto) Immature Gran # (Auto) Neut # (Auto) Lymph # (Auto) [place] # (Auto) Eos # (Auto) Baso # (Auto) Absolute Nucleated RBC 0.14 H Nucleated RBC % (auto) 1.0 Polychromasia Anisocytosis PT 10.7 INR 1.0 APTT PTT Ratio Sodium Potassium Chloride Carbon Dioxide Anion Gap BUN Creatinine Est Cr Clr Drug Dosing Est GFR ( Amer) Est GFR (Non-Af Amer) BUN/Creatinine Ratio Glucose POC Glucose 132 H Estimat Average Glucose Hemoglobin A1c Calcium Total Bilirubin AST ALT Alkaline Phosphatase Troponin I Total Protein Albumin Globulin Albumin/Globulin Ratio Lipase Beta-Hydroxybutyric Acd Urine Color Urine Appearance Urine pH Ur Specific [place] Urine Protein POC Urine Protein Urine Glucose (UA) POC Ur Glucose (UA) Urine Ketones POC Urine Ketones Urine Blood POC Urine Blood Urine Nitrite POC Urine Nitrite Urine Bilirubin Urine Urobilinogen Ur Leukocyte Esterase POC U Leukocyte Esteras Urine WBC (Auto) Urine RBC (Auto) U Hyaline Cast (Auto) U Epithel Cells (Auto) Urine Bacteria (Auto) Stl C. diff Tox B Gene Blood Type Blood Type Recheck Antibody Screen Crossmatch 08/11/18 07:46 WBC RBC Hgb Hct MCV MCH MCHC RDW Std Deviation RDW Coeff of [place] Plt Count MPV Immature Gran % (Auto) Neut % (Auto) Lymph % (Auto) [place] % (Auto) Eos % (Auto) Baso % (Auto) Immature Gran # (Auto) Neut # (Auto) Lymph # (Auto) [place] # (Auto) Eos # (Auto) Baso # (Auto) Absolute Nucleated RBC Nucleated RBC % (auto) Polychromasia Anisocytosis PT INR APTT PTT Ratio Sodium 139 Potassium 3.9 Chloride 109 H Carbon Dioxide 22 Anion Gap 9.0 BUN 30 H Creatinine 0.89 D Est Cr Clr Drug Dosing 59.0 Est GFR ( Amer) 78.8 Est GFR (Non-Af Amer) 68.0 BUN/Creatinine Ratio 34.0 H Glucose 128 H POC Glucose Estimat Average Glucose Hemoglobin A1c Calcium 9.4 Total Bilirubin AST ALT Alkaline Phosphatase Troponin I Total Protein Albumin Globulin Albumin/Globulin Ratio Lipase Beta-Hydroxybutyric Acd Urine Color Urine Appearance Urine pH Ur Specific [place] Urine Protein POC Urine Protein Urine Glucose (UA) POC Ur Glucose (UA) Urine Ketones POC Urine Ketones Urine Blood POC Urine Blood Urine Nitrite POC Urine Nitrite Urine Bilirubin Urine Urobilinogen Ur Leukocyte Esterase POC U Leukocyte Esteras Urine WBC (Auto) Urine RBC (Auto) U Hyaline Cast (Auto) U Epithel Cells (Auto) Urine Bacteria (Auto) Stl C. diff Tox B Gene Blood Type Blood Type Recheck Antibody Screen Crossmatch
[2018-08-11] MEDS ORDERED: LIDOCAINE HCL 2% 2 ML VIAL/AMP(20MG/ML) INFIL ONE (12:19)
[2018-08-11] MEDS ORDERED: PROPOFOL IV EMULSION 10 MG/ML 20 ML VIAL IV ONE (12:19)
--- NOTE | 2018-08-11 13:25 | GI REPORT ---
Patient Name: Karina Hernandez Procedure Date: 08/11/2018 12:25 PM Date of : 1955 Admit Type: Inpatient Age: 63 Gender: Female Attending MD: Donald Perdomo MD Procedure: Upper GI endoscopy Providers: Donald Perdomo MD Referring MD: CUCO DALLAS Indications: Melena Medicines: See the Anesthesia note for documentation of the administered medications Complications: No immediate complications. Estimated Blood Loss: Estimated blood loss: none. Procedure: Pre-Anesthesia Assessment: - Prior to the procedure, a History and Physical was performed, and patient medications, allergies and sensitivities were reviewed. The patient's tolerance of previous anesthesia was reviewed. - The risks and benefits of the procedure and the sedation options and risks were discussed with the patient. All questions were answered and informed consent was obtained. - Patient identification and proposed procedure were verified prior to the procedure by the physician and the nurse. The procedure was verified in the pre-procedure area. - Pre-procedure physical examination revealed no contraindications to sedation. - After reviewing the risks and benefits, the patient was deemed in satisfactory condition to undergo the procedure. After obtaining informed consent, the endoscope was passed under direct vision. Throughout the procedure, the patient's blood pressure, pulse, and oxygen saturations were monitored continuously. The Scope was introduced through the mouth, and advanced to the third part of duodenum. The upper GI endoscopy was accomplished without difficulty. The patient tolerated the procedure well. Findings: The esophagus was normal. The stomach was normal. The examined duodenum was normal. The cardia and gastric fundus were normal on retroflexion. Impression: - Normal esophagus. - Normal stomach. - Normal examined duodenum. - No specimens collected. Recommendation: - [facility]. - Advance diet as per primary service. Donald Perdomo M.D. Donald Perdomo MD 08/11/2018 1:25:05 PM This report has been signed electronically. Note Initiated On: 08/11/2018 12:25 PM Number of Addenda: 0 I attest to the content of the Intraoperative Record and orders documented therein, exceptions below {[id number]}
--- NOTE | 2018-08-11 13:57 | Anesthesiology Progress Note ---
Date of Service August 11, 2018 Anesthesia Post Procedure Vital Signs Vital Signs: Temp Pulse Pulse Resp BP BP Pulse Ox 08/11/18 13:29 79 20 124/66 98 08/11/18 13:14 86 20 139/65 97 08/11/18 12:59 91 H 18 138/61 98 08/11/18 12:27 37 C 47 L 18 156/79 H 98 08/11/18 11:39 36.8 C 57 L 16 154/78 H 98 08/11/18 08:00 57 L 08/11/18 06:44 36.7 C 71 20 153/71 H 99 08/11/18 03:25 37.0 C 55 L 21 123/64 95 08/11/18 01:23 57 L 08/10/18 23:57 36.7 C 50 L 16 124/70 99 08/10/18 23:00 36.8 C 56 L 16 122/70 98 08/10/18 22:39 36.8 C 68 18 129/57 L 98 08/10/18 22:21 36.8 C 65 18 109/49 L 98 08/10/18 22:17 36.9 C 63 18 116/65 98 08/10/18 22:12 36.9 C 63 18 114/65 98 08/10/18 22:00 36.9 C 65 18 116/64 99 08/10/18 21:46 36.9 C 51 L 16 114/54 L 98 08/10/18 21:29 36.8 C 63 105/48 L 98 08/10/18 21:15 36.8 C 63 18 109/49 L 98 08/10/18 21:14 61 08/10/18 20:18 37.1 C 66 18 113/52 L 95 08/10/18 19:48 36.9 C 65 18 110/68 97 08/10/18 19:33 37.1 C 69 18 118/53 L 97 08/10/18 19:17 37.0 C 68 18 137/55 L 95 08/10/18 18:27 67 20 159/68 H 96 08/10/18 17:57 71 20 159/68 H 96 08/10/18 16:46 71 20 161/57 H 96 08/10/18 16:04 62 20 97 08/10/18 15:13 59 L 99 08/10/18 14:29 36.8 C 115 H 17 141/71 H 98 Pain Intensity Bilateral Lower Abdomen: Pain Intensity: 3 Transfer of Care Handoff Completed per policy Notes Mental Status: alert / awake / arousable Patient Amnestic to Procedure: Yes Nausea / Vomiting: adequately controlled Pain: adequately controlled Airway Patency, RR, SpO2: stable & adequate BP & HR: stable & adequate Hydration State: stable & adequate Anesthetic Complications: no major complications apparent
[2018-08-11 20:13] LABS: Hematocrit (blood only) 26.1 % (37-47); Hemoglobin 9.2 g/dL (12.0-16.0)
[2018-08-12 05:51] LABS: Hematocrit (blood only) 25.1 % (37-47); Hemoglobin 8.7 g/dL (12.0-16.0); Mean Corpuscular Hgb Conc 34.7 g/dL (32-36); Mean Corpuscular Volume 91.9 fL (80-100); Mean Platelet Volume 9.9 fL (7.4-10.4); Nucleated RBC # (auto) 0.03 K/uL (0-0); Nucleated RBC % (auto) 0.3 %; Platelet Count 210 K/uL (130-400); RDW Standard Deviation 66.4 fL (36.4-46.3); Red Blood Count 2.73 M/uL (4.2-5.4); White Blood Count 8.76 K/uL (4.8-10.8)
[2018-08-12] MEDS: INSULIN GLARGINE SOLOSTAR 100 UNITS/ML 3 ML PEN SC SCH (08:03)
[2018-08-12] MEDS: INSULIN ASPART 100 UNITS/ML 3 ML PEN SC SCH ×2 (08:04→12:40)
[2018-08-12] MEDS ORDERED: PANTOprazole 40 MG TAB PO SCH (09:00)
[2018-08-12] MEDS: SOTALOL HCL 80 MG TAB PO SCH (09:36)
--- NOTE | 2018-08-12 15:25 | Hospitalist Progress Note ---
Date of Service August 12, 2018 Assessment & Plan (1) Symptomatic anemia: (2) GI bleed: Mostly due to Coumadin Presented on admission with dark stools for 1 week associated with weakness and dizziness Heme positive stool in ER INR on admission greater than 10 Hgb 6.2 on admission Received 2 unit PRBC and 2 units FFP during hospital course Hgb 8.7 today GI on board EGD done on 08/11 showed normal esophagus and normal stomach. Tolerated diet PPI drip discontinues Continue pantoprazole daily OK to resume coumadin tomorrow Check CBC in 1 week (3) Supratherapeutic INR: INR >10 on admission ER physician spoke with Dr Lnyn reports recommended FFP. In ER received vitamin K 10mg IV Received 2 Unit FFP on 08/10 Will resume coumadin Continue monitor PT/INR (4) Dizziness: Mostly due to symptomatic anemia with hgb 6.[address] HEAD showed no acute intracranial abnormality Resolved (5) Paroxysmal atrial fibrillation: Hx ablation 2012. rate control with sotalol Coumadin on hold due to GI bleed Will resume coumadin on discharge Stable (6) History of aortic valve replacement: bioprosthetic valve. 2012 Stable (7) Hyperglycemia: (8) Diabetes mellitus, type II: A1c: 6.2 today Continue Novolog and Lantus sliding scale Hold oral DM med Monitor BS (9) HTN (hypertension): BP stable Resume lisinopril on discharge Monitor BP (10) HLD (hyperlipidemia): Resume statin on discharge Bradycardia Asymptomatic Continue sotalol if develops any symptoms, will need to see cardiology to adjust med DVT Prophylaxis on SCD (due to GI bleed) CODE STATUS Full Code Disposition Will discharge home today Check CBC in 1 week Follow up with the [facility] Follow up with your PCP in 1 week Subjective Pt was seen and examined Lying in bed with no distress Pt said that her stools are not dark anymore She said that she tolerated her diet Denies any chest pain, palpitation, dizziness and SOB Physical Exam Physical Exam: General- No acute distress Head- atraumatic Eyes- PERRL, EOMI, ENT- oropharynx clear Neck- supple, no JVD Lungs- clear to auscultation Heart- irregular rhythm; no murmur Abdomen- normal bowel sounds, soft, nontender Extremities- no calf tenderness Neuro- alert, oriented x 3; PERRL, EOMI; no facial palsy; no dysarthria Skin- warm & dry Results & Data Vital Signs (Past 12 Hours) Vital Signs Temp Pulse Pulse Resp BP Pulse Ox 08/12/18 15:13 37.1 C 61 18 120/69 98 08/12/18 11:28 37.2 C 50 L 16 152/68 H 97 08/12/18 07:42 58 L 08/12/18 07:13 36.6 C 44 L 16 172/74 H 98
--- NOTE | 2018-08-12 18:23 | Discharge Summary ---
Date of Service August 12, 2018 Admission HPI Per Admitting Provider Pt is 63 y/o F with PMH AVR with bioprosthetic valve in 2012, s/p ascending aortic aneurysm repair 2012, paroxysmal atrial fibrillation with history of ablation in 2012 on Coumadin, CAD s/p cath 2012 with nonobstructive CAD, HTN, HLD, DM II presented to ER with complaint of dizziness. Pt is poor historian. Patient reports for the past week has been feeling dizzy with associated headache and neck aching and pounding sensation in the chest with walking and standing. She denies any syncopal episodes. Patient states today was having pink specks in her vision bilaterally with standing. Also reports the past week with intermittent right arm numbness with standing and walking occurs with the dizziness. Patient was seen by PCP 08/03/2017 with reported sinus pain congestion and ear pain for 2 weeks and was placed on Augmentin and Medrol Dosepak. Patient was then placed on prednisone taper 2 days ago. Today patient is denying any nasal congestion. Patient states approximately 3 weeks ago started with loose stools. Approximately 1 week ago had vomiting for 1 to 2 days which has resolved. Patient states continues with loose stools. Reports the past week has noticed black-colored stools. Patient states was having some lower abdominal aching and mid back pain 1 week ago had gross hematuria with some intermittent dysuria. Patient states dysuria and hematuria and back pain have since resolved. Patient reports had outpatient CT scan which showed stones in kidneys. She reports is been measuring temperature and highest is been 99F 1 week ago. Last had INR checked on 07/12/2018 and INR was 2.8. Denies diaphoresis, vision loss, SOB, orthopnea, cough, sore throat, choking, otalgia, rhinorrhea, extremity weakness, extremity edema, rashes. History UGI 2013 that was normal History colonoscopy in 2015 that was normal Admission Exam Per Admitting Provider General: no acute distress, WDWN Head: normocephalic, atraumatic Eyes: PERRL, EOM's intact, conjunctiva pale, anicteric ENT: normal inspection external ears, nose, mucous membranes moist Neck: supple, trachea midline, non-tender Lungs: clear, no respiratory distress, no wheezing/rhonchi/rales CV: RRR, no JVD, no pretibial edema Abd: normal BS, soft, non-tender Ext: no cyanosis, no calf tenderness, strength 4/5 upper and lower extremities Neuro: A&O x 3, no focal deficits noted, normal affect Skin: warm, dry, skin pale Principal Diagnosis GI bleed Symptomatic anemia Supratherapeutic INR Paroxysmal atrial fibrillation HTN Discharge Exam General- No acute distress Head- atraumatic Eyes- PERRL, EOMI, ENT- oropharynx clear Neck- supple, no JVD Lungs- clear to auscultation Heart- irregular rhythm; no murmur Abdomen- normal bowel sounds, soft, nontender Extremities- no calf tenderness Neuro- alert, oriented x 3; PERRL, EOMI; no facial palsy; no dysarthria Skin- warm & dry Discharge Data Allergies Allergy/AdvReac Type Severity Reaction Status Date / Time ciprofloxacin Allergy Unknown Nausea/Vomi Verified 08/10/18 16:09 ting metformin AdvReac Unknown Diarrhea Verified 08/10/18 16:09 Consultations 08/10/18 16:27 ED Decision to Admit Stat 08/10/18 20:42 Consult Case Management - Discharge Planning Routine Consult Gastroenterology Routine Procedures Performed Operation Date: 08/11/18 09:10 Actual Procedures p Esophagogastroduodenoscopy - Donald Perdomo Ordered Studies 08/10/18 18:10 CT head/brain wo con Stat CT head/brain wo con CT DOSE: 537.48 mGy.cm HISTORY: Mental status change RYAN, dizziness, elevated inr r/o bleed TECHNIQUE: Multiaxial CT images of the head were performed without the use of intravenous contrast. A dose lowering technique was utilized adhering to the principles of ALARA. Comparison: None. Findings: The paranasal sinuses and mastoid air cells are clear. The calvarium and skull base are intact. The ventricles and sulci are within normal limits. There is no mass, hematoma, midline shift, or acute infarct. Impression: No acute intracranial abnormality. The above report was generated using voice recognition software. It may contain grammatical, syntax or spelling errors. Electronically signed by: Hardeep Albert M.D. 08/10/2018 7:10 PM Dictated: 08/10/181909 Transcribed: 08/10/181909 TWO VIEW CHEST CLINICAL HISTORY: Dizziness. Clinical concern for pneumonia. FINDINGS: PA and lateral chest radiographs are obtained. No prior studies are available for comparison at the time of dictation. The patient is status post midline sternotomy and aortic valve surgery. The heart is mildly enlarged. The pulmonary vasculature is noncongested. A calcified granuloma is seen in the right midlung. The lungs and pleural spaces are otherwise clear. There is no pneumothorax. The skeletal structures are osteopenic. The bony thorax appears intact. IMPRESSION: Mild cardiac enlargement with no active disease in the chest. Electronically signed by: Jarrett West M.D. 08/10/2018 4:15 PM Dictated: 08/10/18 1614 Transcribed: 08/10/18 1614 Hospital Course (1) Symptomatic anemia: (2) GI bleed: Mostly due to Coumadin Presented on admission with dark stools for 1 week associated with weakness and dizziness Heme positive stool in ER INR on admission greater than 10 Hgb 6.2 on admission Received 2 unit PRBC and 2 units FFP during hospital course Hgb 8.7 today GI on board EGD done on 08/11 showed normal esophagus and normal stomach. Tolerated diet PPI drip discontinues Continue pantoprazole daily OK to resume coumadin tomorrow Check CBC in 1 week (3) Supratherapeutic INR: INR >10 on admission ER physician spoke with Dr Lynn reports recommended FFP. In ER received vitamin K 10mg IV Received 2 Unit FFP on 08/10 Will resume coumadin Continue monitor PT/INR (4) Dizziness: Mostly due to symptomatic anemia with hgb 6.[address] HEAD showed no acute intracranial abnormality Resolved (5) Paroxysmal atrial fibrillation: Hx ablation 2012. rate control with sotalol Coumadin on hold due to GI bleed Will resume coumadin on discharge Stable (6) History of aortic valve replacement: bioprosthetic valve. 2012 Stable (7) Hyperglycemia: (8) Diabetes mellitus, type II: A1c: 6.2 today Continue Novolog and Lantus sliding scale Hold oral DM med Monitor BS (9) HTN (hypertension): BP stable Resume lisinopril on discharge Monitor BP (10) HLD (hyperlipidemia): Resume statin on discharge Bradycardia Asymptomatic Continue sotalol if develops any symptoms, will need to see cardiology to adjust med DVT Prophylaxis on SCD (due to GI bleed) CODE STATUS Full Code Disposition Will discharge home today Check CBC in 1 week Follow up with the coag clinic Follow up with your PCP in 1 week Total Time Total Time Spent Total Time Spent (In Minutes): 35 minutes Total Time Includes: Examination of the Patient, Discharge Planning, Medication Reconciliation, Communication With Other Providers and Other Discharge Plan Discharge Items Patient Disposition: Home - Self-Care Reason For Visit: GI BLEED Discharge Diagnosis: GI bleed Symptomatic anemia Supratherapeutic INR Paroxysmal atrial fibrillation HTN Discharge Goals: Decrease discomfort, Improve disease control, Improve function and Increase independence Activity: Resume your previous activity Activity Comment: As tolerated Non-emergency contact: Primary Care Provider Call non-emergency contact if: you have any medication questions Follow-up/Referrals: PCP,NO [Primary Care Provider] - Diet: Heart Healthy Addtl Provider Instructions: Follow up with your primary care provider in 1 week Follow up with the coumadin clinic Check PT/INR on Tuesday Check CBC within 1 week to monitor hemoglobin Ok to resume coumadin tomorrow Avoid any NSAIDs while on coumadin such as Motrin, Aleve, naproxen, Ibuprofen , advil, .... Monitor for any abnormal bleeding and seek medical attention if bleeding reoccurs Prescriptions: Continued prednisone 10 mg Tablet See Rx Instructions .ROUTE .COMPLEX RF: 0 oxybutynin chloride 10 mg Tablet Extended Release 24hr 10 mg PO DAILY RF: 0 sotalol 80 mg Tablet 40 mg PO Q12H RF: 0 glimepiride 4 mg Tablet 4 mg PO QAM RF: 0 lisinopril 40 mg Tablet 40 mg PO DAILY RF: 0 repaglinide 1 mg Tablet 1 mg PO TIDM RF: 0 Lyrica 50 mg Capsule 50 mg PO TID RF: 0 omeprazole 20 mg Tablet,Delayed Release (Dr/Ec) 20 mg PO DAILY RF: 0 atorvastatin 80 mg Tablet 80 mg PO HS RF: 0 ketoconazole 2 % Shampoo 2 % TOPICAL DAILY RF: 0 fluticasone propionate [Flonase Allergy Relief] 50 mcg/actuation [place],Suspension 2 spray INTRANASAL DAILY RF: 0 Changed warfarin 2.5 mg Tablet 2.5 mg PO DAILY Qty: 0 RF: 0 Discontinued warfarin 2.5 mg Tablet 5 mg PO 2XWK RF: 0 amoxicillin-pot clavulanate [Augmentin] 875-125 mg Tablet 1 tab PO BID RF: 0 Stand-Alone Forms: [facility] [employer] [facility]/Other Patient Handouts: Bleeding Gastrointestinal Discharge Orders: Discharge Order (Routine); Ordered 08/12/18 Ordered By: Genie Malcolm Admission Data Admit Date/Time: 08/10/18 19:28 Attending Provider: Genie Malcolm Admit Provider: Lani Burdick Primary Care Provider: PCP,NO Other Providers: Sadi Avelar Sabrina M Service: Telemetry Other Interventions: Discharge Summary Assessment (RN) Last Done: 08/12/18 16:19 DC Date/Time DO NOT enter until pt leaves facility: 08/12/18 16:43
== END 2018-08-12 16:43 | disposition home or self-care (01) | DRG 813 ==
LOC: ED 14:27 → 2S 19:28